=== PATIENT | male | born 1965 | race Caucasian/White ===

== ENCOUNTER 2022-02-12 00:34 | Inpatient (IN) ==
[2022-02-12] MEDS ORDERED: SODIUM CHLORIDE 0.9% 1,000 ML IV STA (00:45)
[2022-02-12] MEDS ORDERED: ONDANSETRON 4 MG/2 ML VIAL IV STA (00:45)
[2022-02-12 00:54] LABS: Basophils # 0.1 10*3/uL (0.0-0.2); Basophils % 0.8 % (0.0-0.8); Eosinophils # 0.2 10*3/uL (0.0-0.87); Eosinophils % 2.8 % (0.00-10.9); Hematocrit 47.2 VOL% (42.0-52.0); Hemoglobin 15.5 GM/DL (14.0-18.0); Immature Granulocytes % 0.4 %; Immature Granulocytes Absolute 0.03 #; Lymphocytes # 1.7 10*3/uL (1.4-4.0); Lymphocytes % 20.3 % (21.2-54.2); Mean Corpuscular HGB Conc 32.8 GM/DL (32-36); Mean Platelet Volume 9.2 FL (9.6-12.0); Monocytes # 0.5 10*3/uL (0.11-0.8); Monocytes % 5.7 % (1.7-12.7); Platelet Count 280 T/CUMM (130-400); Red Blood Count 5.49 MC/CUMM (3.8-5.5); Red Cell Distribution Width 14.3 % (9.3-17.3); White Blood Count 8.5 T/CUMM (4-12)
[2022-02-12 01:11] LABS: Albumin 4.4 G/DL (3.4-5.0); Bilirubin,Total 0.4 MG/DL (0.20-1.00); Calcium 9.9 MG/DL (8.5-10.1); Osmolality,Calculated 287.1 MOS/KG (273-304); Total Protein 7.4 G/DL (6.4-8.2)
[2022-02-12] MEDS ORDERED: MORPHINE 2 MG/1 ML SYRINGE IV STA ×2 (01:21→02:20)
[2022-02-12 02:53] LABS: Amorphous Crystals,Urine Occasional /HPF (Few); Bilirubin,Urine Negative (Negative); Blood, Urine Negative (Negative); Glucose,Urine (UA) Negative (Negative); Ketones,Urine Negative (Negative); Mucus,Urine Occasional /LPF (Occasional); Nitrite,Urine Negative (Negative); Protein,Urine Negative (Negative); RBC,Urine 1 /HPF (0-4); Urine Appearance Clear (Clear); Urine Color Yellow (Yellow); Urine Specific Gravity 1.015 (1.001-1.035); Urine pH 8.5 (4.5-8.0)
[2022-02-12 02:54] LABS: Urine Urobilinogen 0.2 eU/dL (<2.0)
[2022-02-12] MEDS ORDERED: ACETAMINOPHEN 325 MG TABLET PO PRN (03:07)
[2022-02-12] MEDS: PIPERACILLIN/TAZOBACTAM 3,375 MG in SODIUM CHLORIDE 0.9% 100 ML IV SCH ×3 (04:21→20:16)
[2022-02-12] MEDS: DEXTROSE 5% NACL 0.45% 1,000 ML IV SCH ×4 (04:21→19:29)
[2022-02-12] MEDS: ONDANSETRON 4 MG/2 ML VIAL IV PRN ×3 (04:44→20:11)
[2022-02-12] MEDS: HYDROmorphone 1 MG/1 ML SYRINGE IV PRN ×3 (04:49→20:13)
[2022-02-12] MEDS: PANTOPRAZOLE 40 MG VIAL IV SCH (08:40)
[2022-02-13] MEDS: DEXTROSE 5% NACL 0.45% 1,000 ML IV SCH ×4 (03:30→17:26)
[2022-02-13] MEDS: PIPERACILLIN/TAZOBACTAM 3,375 MG in SODIUM CHLORIDE 0.9% 100 ML IV SCH ×3 (03:45→20:53)
[2022-02-13] MEDS: HYDROmorphone 1 MG/1 ML SYRINGE IV PRN (06:26)
[2022-02-13] MEDS: ONDANSETRON 4 MG/2 ML VIAL IV PRN (08:41)
[2022-02-13] MEDS: VENLAFAXINE XR 75 MG CAPSULE PO SCH (08:41)
[2022-02-13] MEDS: PANTOPRAZOLE 40 MG VIAL IV SCH (08:42)
[2022-02-14] MEDS: DEXTROSE 5% NACL 0.45% 1,000 ML IV SCH ×2 (04:18→04:23)
[2022-02-14] MEDS: PIPERACILLIN/TAZOBACTAM 3,375 MG in SODIUM CHLORIDE 0.9% 100 ML IV SCH (04:19)
[2022-02-14 07:37] VITALS: BP 115/69
[2022-02-14] MEDS: PANTOPRAZOLE 40 MG VIAL IV SCH (08:14)
[2022-02-14] MEDS: VENLAFAXINE XR 75 MG CAPSULE PO SCH (08:15)
== END 2022-02-14 13:30 | disposition home or self-care (01) | DRG 392 ==
LOC: N.ED 00:34 → N.EDINP 03:05 → N.3E 03:05
PROVIDERS: ADMIT Surgery; ATTEND Surgery